=== PATIENT | female | born 1935 | race African-American/Black ===

== ENCOUNTER 2017-11-13 07:02 | Inpatient (IN) | payer MEDICARE, MEDICAID ==
[~2017-11-13] VITALS: Ht 170.2 cm; Wt 64.9 kg
[2017-11-13] VITALS (7 sets, daily range): BP systolic 88–158; BP diastolic 53–83
[~2017-11-13 07:02] MED LIST: ALBU6.7H INH; ALPR-392 PO
[2017-11-13] MEDS ORDERED: ACETYLCYSTEINE 100MG/ML 10% VIAL 4ML INH ONE (07:15)
[2017-11-13] MEDS ORDERED: IPRATROPIUM/ALBUTEROL 0.5-3(2.5)MG/3ML NEB HHN ONE (07:15)
[2017-11-13 07:43] LABS: HEMATOCRIT. 42.3 % (36.0-48.0); HEMOGLOBIN. 13.6 g/dL (12.0-16.0); MEAN CORPUSCULAR HEMOGLOBIN 28.6 pg (28.0-32.0); MEAN CORPUSCULAR VOLUME 88.7 fL (81.0-99.0); MEAN PLATELET VOLUME 11.3 fl (7.4-10.4); PLATELET 313 x1000/uL (130-400); RED BLOOD CELL COUNT 4.77 mill/uL (4.2-5.4); RED CELL DISTRIBUTION WIDTH 14.2 % (11.6-14.6)
[2017-11-13 07:45] LABS: CHLORIDE 104 mEq/L (98-107)
[2017-11-13 07:47] LABS: INR 1.3; PARTIAL THROMBOPLASTIN TIME 26.4 sec (23.4-31.0); PROTHROMBIN TIME 13.4 sec (9.4-11.6)
[2017-11-13 08:01] LABS: PLATELET ESTIMATE NORMAL
[2017-11-13 08:14] LABS: BG BASE EXCESS 0.2 mmol/L (-2.0-2.0); BG CARBOXYHEMOGLOBIN 0.4 % (0.5-1.5); BG DEOXYHEMOGLOBIN 1.3 % (0.0-5.0); BG FRACTION INSPIRED OXYGEN 50; BG HCO3 ACT 25.2 mmol/L (22.0-26.0); BG METHEMOGLOBIN 0.4 % (0.0-1.5); BG OXYGEN SATURATION 98.7 % (92.0-98.5); BG OXYHEMOGLOBIN 97.9 % (94.0-97.0); BG PCO2 42.4 mmHg (35.0-45.0); BG PH 7.392 (7.350-7.450); BG PO2 128.3 mmHg (75.0-100.0); BG SAMPLE SITE RIGHT RADIAL; BG TIDAL VOLUME(mL) 500 mL; BG TOTAL HEMOGLOBIN 13.6 g/dL (12.0-18.0); BG VENT MODE VENT - SIMV; BG VENT RATE 14 set
[2017-11-13 08:22] LABS: CLARITY URINE TURBID (CLEAR); COLOR URINE YELLOW (YELLOW); KETONES URINE NEGATIVE (NEGATIVE); LEUKOCYTE ESTERASE URINE 3+ (NEGATIVE); NITRITE URINE NEGATIVE (NEGATIVE); OCCULT BLOOD URINE 2+ (NEGATIVE); PH URINE 5.5 (4.5-8.0); PROTEIN URINE 1+ (NEGATIVE)
[2017-11-13] MEDS ORDERED: VANCOMYCIN 1 G PREMIX 200 ML IV SCH (08:30)
[2017-11-13] MEDS ORDERED: PIPERACILLIN/TAZOBACTAM 3.375GM/50ML PREMIX IV ONE (08:30)
[2017-11-13] MEDS ORDERED: SODIUM CHLORIDE 0.9% 1000ML BAG (SEPSIS BOLUS) IV ONE (08:30)
[2017-11-13] MEDS ORDERED: PIPERACILLIN/TAZ 3.375G PREMIX 50 ML IV ONE (08:45)
[2017-11-13] MEDS ORDERED: IPRATROPIUM/ALBUTEROL 0.5-3(2.5)MG/3ML NEB HHN PRN (11:15)
[2017-11-13] MEDS ORDERED: DOCUSATE SODIUM 100MG CAPSULE PO PRN (12:00)
[2017-11-13] MEDS ORDERED: MORPHINE SULFATE 4 MG/ML CPJ (NOT FOR IM USE) IV PRN (12:00)
[2017-11-13] MEDS ORDERED: NITROGLYCERIN 0.4MG TABLET SL SL PRN (12:00)
[2017-11-13] MEDS ORDERED: ACETAMINOPHEN 325MG TABLET PO PRN (12:00)
[2017-11-13] MEDS ORDERED: GUAIFENESIN 200MG/10ML SUGAR FREE UDC PO PRN (12:00)
[2017-11-13] MEDS ORDERED: LORAZEPAM 0.5MG TABLET PO PRN (12:00)
[2017-11-13] MEDS ORDERED: DIPHENHYDRAMINE 50MG/ML VIAL IV PRN (12:00)
[2017-11-13] MEDS ORDERED: TRAMADOL 50MG TABLET PO PRN (12:00)
[2017-11-13] MEDS ORDERED: ZOLPIDEM TARTRATE 5MG TABLET PO PRN (12:00)
[2017-11-13] MEDS ORDERED: CLONIDINE 0.1MG TABLET PO PRN (12:00)
[2017-11-13] MEDS ORDERED: NA PHOS,M-B/NA PHOS,DI-BA ENEMA 118ML PR PRN (12:00)
[2017-11-13] MEDS ORDERED: MAGNESIUM/ALUMINUM HYDROXIDE/SIMETHICONE 30ML UDC PO PRN (12:00)
[2017-11-13] MEDS ORDERED: ONDANSETRON HCL 4MG/2ML VIAL IV PRN (12:00)
[2017-11-13] MEDS: IPRATROPIUM/ALBUTEROL 0.5-3(2.5)MG/3ML NEB HHN SCH ×4 (12:08→23:40)
[2017-11-13] MEDS ORDERED: SODIUM CHLORIDE 10% FOR INH 15ML VIAL NEB INH SCH (12:30)
[2017-11-13] MEDS: MEROPENEM 1,000 MG in SODIUM CHLORIDE 0.9% 100 ML IV SCH ×2 (14:42→21:21)
[2017-11-13] MEDS: ASCORBIC ACID 500 MG TABLET PO SCH ×2 (14:53→21:19)
[2017-11-13] MEDS: ZINC SULFATE 220 MG ( 50 ) CAPSULE PO SCH (14:53)
[2017-11-13] MEDS: ASPIRIN 325MG EC TABLET PO SCH (14:53)
[2017-11-13] MEDS: ENOXAPARIN 40MG/0.4ML SYR SUBCUT SCH (14:54)
[2017-11-13 16:16] LABS: CREATINE KINASE MB FRACTION 3.5 ng/mL (0.5-3.6)
[2017-11-13] MEDS: ACETYLCYSTEINE 100MG/ML 10% VIAL 4ML INH SCH ×2 (16:24→23:40)
[2017-11-13] MEDS: LEVETIRACETAM 500MG/5ML CUP GT SCH (17:29)
[2017-11-13] MEDS ORDERED: LOSARTAN POTASSIUM 50 MG TABLET GT SCH (18:00)
[2017-11-13] MEDS ORDERED: ATORVASTATIN CALCIUM 10MG TABLET GT SCH (21:00)
[2017-11-13] MEDS ORDERED: LEVETIRACETAM 500MG/5ML CUP GT SCH (21:00)
[2017-11-13] MEDS: ATORVASTATIN CALCIUM 10MG TABLET GT SCH (21:18)
[2017-11-13] MEDS: FAMOTIDINE 20MG TABLET PO SCH (21:20)
[2017-11-14] VITALS (12 sets, daily range): BP systolic 108–159; BP diastolic 45–116
[2017-11-14] MEDS: VANCOMYCIN 1 G PREMIX 200 ML IV SCH ×2 (00:01→18:11)
[2017-11-14 01:24] LABS: CREATINE KINASE MB FRACTION 3.1 ng/mL (0.5-3.6)
[2017-11-14] MEDS: IPRATROPIUM/ALBUTEROL 0.5-3(2.5)MG/3ML NEB HHN SCH ×5 (03:25→20:38)
[2017-11-14] MEDS: LEVETIRACETAM 500MG/5ML CUP GT SCH ×2 (05:51→18:11)
[2017-11-14] MEDS: MEROPENEM 1,000 MG in SODIUM CHLORIDE 0.9% 100 ML IV SCH ×2 (05:52→14:04)
[2017-11-14] MEDS: ACETYLCYSTEINE 100MG/ML 10% VIAL 4ML INH SCH ×2 (08:45→16:10)
[2017-11-14] MEDS ORDERED: LOSARTAN POTASSIUM 50 MG TABLET GT SCH (09:00)
[2017-11-14 09:21] LABS: BG BASE EXCESS 2.3 mmol/L (-2.0-2.0); BG CARBOXYHEMOGLOBIN 0.1 % (0.5-1.5); BG DEOXYHEMOGLOBIN 1.2 % (0.0-5.0); BG FRACTION INSPIRED OXYGEN 40; BG HCO3 ACT 26.3 mmol/L (22.0-26.0); BG METHEMOGLOBIN 0.2 % (0.0-1.5); BG OXYGEN SATURATION 98.8 % (92.0-98.5); BG OXYHEMOGLOBIN 98.5 % (94.0-97.0); BG PCO2 38.5 mmHg (35.0-45.0); BG PH 7.452 (7.350-7.450); BG PO2 150.8 mmHg (75.0-100.0); BG SAMPLE SITE RIGHT RADIAL; BG TIDAL VOLUME(mL) 500 mL; BG TOTAL HEMOGLOBIN 11.4 g/dL (12.0-18.0); BG VENT MODE VENT - A/C; BG VENT RATE 14 set
[2017-11-14] MEDS: ENOXAPARIN 40MG/0.4ML SYR SUBCUT SCH (09:40)
[2017-11-14] MEDS: ASPIRIN 325MG EC TABLET PO SCH (09:40)
[2017-11-14] MEDS: ASCORBIC ACID 500 MG TABLET PO SCH ×2 (09:40→21:20)
[2017-11-14] MEDS: ZINC SULFATE 220 MG ( 50 ) CAPSULE PO SCH (09:40)
[2017-11-14 10:30] LABS: BASOPHILS % 0.3 % (0.0-2.0); EOSINOPHILS % 2.4 % (0.0-5.0); HEMATOCRIT. 31.9 % (36.0-48.0); HEMOGLOBIN. 10.3 g/dL (12.0-16.0); LYMPHOCYTES % 7.2 % (20.0-50.0); MEAN CORPUSCULAR HEMOGLOBIN 28.2 pg (28.0-32.0); MEAN CORPUSCULAR VOLUME 87.8 fL (81.0-99.0); MEAN PLATELET VOLUME 11.2 fl (7.4-10.4); NEUTROPHILS % 84.1 % (40.0-76.0); PLATELET 218 x1000/uL (130-400); RED BLOOD CELL COUNT 3.63 mill/uL (4.2-5.4); RED CELL DISTRIBUTION WIDTH 14.8 % (11.6-14.6)
[2017-11-14 10:52] LABS: CHLORIDE 109 mEq/L (98-107)
[2017-11-14 11:03] LABS: CREATINE KINASE 61 IU/L (26-192)
[2017-11-14 11:05] LABS: CREATINE KINASE MB FRACTION 2.6 ng/mL (0.5-3.6)
[2017-11-14] MEDS: FAMOTIDINE 20MG TABLET PO SCH (21:20)
[2017-11-14] MEDS: ATORVASTATIN CALCIUM 10MG TABLET GT SCH (21:21)
[2017-11-15] VITALS (14 sets, daily range): BP systolic 105–175; BP diastolic 52–93
[2017-11-15] MEDS: ACETYLCYSTEINE 100MG/ML 10% VIAL 4ML INH SCH ×3 (00:34→15:58)
[2017-11-15] MEDS: IPRATROPIUM/ALBUTEROL 0.5-3(2.5)MG/3ML NEB HHN SCH ×6 (00:35→20:58)
[2017-11-15] MEDS: MEROPENEM 1,000 MG in SODIUM CHLORIDE 0.9% 100 ML IV SCH ×2 (00:48→05:57)
[2017-11-15] MEDS: LEVETIRACETAM 500MG/5ML CUP GT SCH ×2 (06:38→17:33)
[2017-11-15] MEDS: ZINC SULFATE 220 MG ( 50 ) CAPSULE PO SCH (08:46)
[2017-11-15] MEDS: ASPIRIN 325MG EC TABLET PO SCH (08:46)
[2017-11-15] MEDS: ASCORBIC ACID 500 MG TABLET PO SCH ×2 (08:46→21:07)
[2017-11-15] MEDS: ENOXAPARIN 40MG/0.4ML SYR SUBCUT SCH (08:47)
[2017-11-15] MEDS: PIPERACILLIN/TAZ 3.375G PREMIX 50 ML IV SCH ×2 (12:34→21:07)
[2017-11-15] MEDS: VANCOMYCIN 1 G PREMIX 200 ML IV SCH (12:34)
[2017-11-15] MEDS: ATORVASTATIN CALCIUM 10MG TABLET GT SCH (21:07)
[2017-11-15] MEDS: FAMOTIDINE 20MG TABLET PO SCH (21:07)
[2017-11-16] VITALS (13 sets, daily range): BP systolic 107–163; BP diastolic 47–87
[2017-11-16] MEDS: ACETYLCYSTEINE 100MG/ML 10% VIAL 4ML INH SCH ×3 (00:45→16:53)
[2017-11-16] MEDS: IPRATROPIUM/ALBUTEROL 0.5-3(2.5)MG/3ML NEB HHN SCH ×6 (00:47→20:37)
[2017-11-16] MEDS: PIPERACILLIN/TAZ 3.375G PREMIX 50 ML IV SCH ×3 (04:53→20:44)
[2017-11-16] MEDS: LEVETIRACETAM 500MG/5ML CUP GT SCH ×2 (05:44→16:57)
[2017-11-16] MEDS: ASPIRIN 325MG EC TABLET PO SCH (09:16)
[2017-11-16] MEDS: ASCORBIC ACID 500 MG TABLET PO SCH ×2 (09:16→20:44)
[2017-11-16] MEDS: ZINC SULFATE 220 MG ( 50 ) CAPSULE PO SCH (09:16)
[2017-11-16] MEDS: ENOXAPARIN 40MG/0.4ML SYR SUBCUT SCH (09:17)
[2017-11-16] MEDS ORDERED: GENTAMICIN 120MG PREMIX 100 ML IV NR (16:00)
[2017-11-16] MEDS: ATORVASTATIN CALCIUM 10MG TABLET GT SCH (20:44)
[2017-11-16] MEDS: FAMOTIDINE 20MG TABLET PO SCH (20:44)
[2017-11-17] VITALS (12 sets, daily range): BP systolic 119–172; BP diastolic 58–89
[2017-11-17] MEDS: ACETYLCYSTEINE 100MG/ML 10% VIAL 4ML INH SCH ×3 (00:17→15:48)
[2017-11-17] MEDS: IPRATROPIUM/ALBUTEROL 0.5-3(2.5)MG/3ML NEB HHN SCH ×6 (00:17→19:49)
[2017-11-17] MEDS: PIPERACILLIN/TAZ 3.375G PREMIX 50 ML IV SCH ×3 (03:25→21:58)
[2017-11-17] MEDS ORDERED: GENTAMICIN 100MG PREMIX 50 ML IV SCH (04:00)
[2017-11-17] MEDS: LEVETIRACETAM 500MG/5ML CUP GT SCH ×2 (05:47→17:08)
[2017-11-17 08:38] LABS: CHLORIDE 107 mEq/L (98-107)
[2017-11-17] MEDS: ASPIRIN 325MG EC TABLET PO SCH (09:50)
[2017-11-17] MEDS: ZINC SULFATE 220 MG ( 50 ) CAPSULE PO SCH (09:50)
[2017-11-17] MEDS: ASCORBIC ACID 500 MG TABLET PO SCH ×2 (09:50→21:58)
[2017-11-17] MEDS: ENOXAPARIN 40MG/0.4ML SYR SUBCUT SCH (09:51)
[2017-11-17] MEDS: ATORVASTATIN CALCIUM 10MG TABLET GT SCH (21:58)
[2017-11-17] MEDS: FAMOTIDINE 20MG TABLET PO SCH (21:59)
[2017-11-18] VITALS (10 sets, daily range): BP systolic 110–152; BP diastolic 47–80
[2017-11-18] MEDS ORDERED: GENTAMICIN SULFATE 160 MG in SODIUM CHLORIDE 0.9% 100 ML IV SCH ×2
[2017-11-18] MEDS: IPRATROPIUM/ALBUTEROL 0.5-3(2.5)MG/3ML NEB HHN SCH ×4 (00:04→12:10)
[2017-11-18] MEDS: ACETYLCYSTEINE 100MG/ML 10% VIAL 4ML INH SCH ×2 (00:05→07:48)
[2017-11-18] MEDS: LEVETIRACETAM 500MG/5ML CUP GT SCH (06:35)
[2017-11-18] MEDS: PIPERACILLIN/TAZ 3.375G PREMIX 50 ML IV SCH (06:35)
[2017-11-18] MEDS: ZINC SULFATE 220 MG ( 50 ) CAPSULE PO SCH (09:26)
[2017-11-18] MEDS: ASCORBIC ACID 500 MG TABLET PO SCH (09:27)
[2017-11-18] MEDS: ASPIRIN 325MG EC TABLET PO SCH (09:28)
[2017-11-18] MEDS: ENOXAPARIN 40MG/0.4ML SYR SUBCUT SCH (09:34)
== END 2017-11-18 16:00 | DRG 870 ==
LOC: ER 07:02 → EDBEDREQSVC 09:29 → 5EST 10:06 → ENRESERV 10:06
PROVIDERS: ADMIT Internal Medicine; ATTEND Internal Medicine
PROC: 5A1955Z Respiratory Ventilation, Greater than 96 Consecutive Hours (ICD-10-PCS; principal; 2017-11-13)
DX: A41.9 Sepsis, unspecified organism (principal); J96.20 Acute and chronic respiratory failure, unspecified whether with hypoxia or hypercapnia; G92 Toxic encephalopathy; E43 Unspecified severe protein-calorie malnutrition; J69.0 Pneumonitis due to inhalation of food and vomit; I21.4 Non-ST elevation (NSTEMI) myocardial infarction; N39.0 Urinary tract infection, site not specified; Z99.11 Dependence on respirator [ventilator] status; Y95 Nosocomial condition; B96.1 Klebsiella pneumoniae [K. pneumoniae] as the cause of diseases classified elsewhere; G40.909 Epilepsy, unspecified, not intractable, without status epilepticus; R74.8 Abnormal levels of other serum enzymes; R79.89 Other specified abnormal findings of blood chemistry; R00.1 Bradycardia, unspecified; I10 Essential (primary) hypertension; I25.10 Atherosclerotic heart disease of native coronary artery without angina pectoris; I73.9 Peripheral vascular disease, unspecified; I69.320 Aphasia following cerebral infarction; I48.91 Unspecified atrial fibrillation; Z93.0 Tracheostomy status; Z68.22 Body mass index [BMI] 22.0-22.9, adult; Z93.1 Gastrostomy status
CPT/HCPCS: 36415; 36600; 51702; 71045; 80048; 80053; 81003; 82375; 82550; 82553; 82805; 83036; 83605; 83690; 83880; 84145; 84484; 85025; 85610; 85730; 87040; 87070; 87077; 87086; 87186; 93005; 93306; 94003; 94640; 96365; 96366; 96368; 99291; J1580; J1650; J2185; J2270; J2543; J3370; J7030; J7040; J7050; J7131; J7608; J7620; A4315

== ENCOUNTER 2018-03-12 17:23 | Inpatient (IN) | payer MEDICARE, MEDICAID ==
[~2018-03-12] VITALS: Ht 165.1 cm; Wt 72.1 kg
[2018-03-12] MEDS ORDERED: LEVOFLOXACIN 750MG PREMIX 150 ML IV ONE (18:45)
[2018-03-12] MEDS ORDERED: PIPERACILLIN/TAZ 3.375G PREMIX 50 ML IV ONE (18:45)
[2018-03-12 19:57] LABS: HEMOGLOBIN. 15.9 g/dL (12.0-16.0); MEAN CORPUSCULAR VOLUME 89.6 fL (81.0-99.0); MEAN PLATELET VOLUME 11.3 fl (7.4-10.4); PLATELET 265 x1000/uL (130-400); RED BLOOD CELL COUNT 5.48 mill/uL (4.2-5.4); RED CELL DISTRIBUTION WIDTH 16.9 % (11.6-14.6)
[2018-03-12 20:05] LABS: BG BASE EXCESS -1.6 mmol/L (-2.0-2.0); BG CARBOXYHEMOGLOBIN 0.5 % (0.5-1.5); BG DEOXYHEMOGLOBIN 7.5 % (0.0-5.0); BG FRACTION INSPIRED OXYGEN 50; BG HCO3 ACT 22.8 mmol/L (22.0-26.0); BG METHEMOGLOBIN 0.4 % (0.0-1.5); BG OXYGEN SATURATION 92.4 % (92.0-98.5); BG OXYHEMOGLOBIN 91.6 % (94.0-97.0); BG PCO2 37.4 mmHg (35.0-45.0); BG PH 7.402 (7.350-7.450); BG PIP 31 cmH2O; BG PO2 65.2 mmHg (75.0-100.0); BG SAMPLE SITE LEFT RADIAL; BG TIDAL VOLUME(mL) 500 mL; BG TOTAL HEMOGLOBIN 15.5 g/dL (12.0-18.0); BG VENT MODE VENT - A/C; BG VENT RATE 14 set
[2018-03-12 20:09] LABS: CHLORIDE 106 mEq/L (98-107)
[2018-03-12] MEDS ORDERED: SODIUM CHLORIDE 0.9% 1000ML BAG (SEPSIS BOLUS) IV ONE (20:45)
[2018-03-12 20:50] LABS: PLATELET ESTIMATE NORMAL
[2018-03-12] MEDS ORDERED: ASPIRIN 325MG EC TABLET PO ONE (21:15)
[2018-03-12] MEDS ORDERED: ZOLPIDEM TARTRATE 5MG TABLET PO PRN (21:45)
[2018-03-12] MEDS ORDERED: IPRATROPIUM/ALBUTEROL 0.5-3(2.5)MG/3ML NEB INH PRN (21:45)
[2018-03-12] MEDS ORDERED: MAGNESIUM/ALUMINUM HYDROXIDE/SIMETHICONE 30ML UDC PO PRN (21:45)
[2018-03-12] MEDS ORDERED: CLONIDINE 0.1MG TABLET PO PRN (21:45)
[2018-03-12] MEDS ORDERED: NOREPINEPHRINE 4 MG in DEXT 5% WATER 246 ML IV PRN (21:45)
[2018-03-12] MEDS ORDERED: ONDANSETRON HCL 4MG/2ML INJ IV PRN (21:45)
[2018-03-12] MEDS ORDERED: LORAZEPAM 2MG/ML CPJ IV PRN ×2 (21:45→22:00)
[2018-03-12] MEDS ORDERED: DOCUSATE SODIUM 100MG CAPSULE PO PRN (21:45)
[2018-03-12] MEDS ORDERED: ACETAMINOPHEN 325MG TABLET PO PRN (21:45)
[2018-03-12] MEDS ORDERED: GUAIFENESIN 200MG/10ML SUGAR FREE UDC PO PRN (21:45)
[2018-03-12] MEDS ORDERED: NITROGLYCERIN 0.4MG TABLET SL SL PRN (21:45)
[2018-03-12] MEDS ORDERED: ASPIRIN 325MG TABLET PO ONE (21:45)
[2018-03-12] MEDS ORDERED: MORPHINE SULFATE 4 MG/ML CPJ (NOT FOR IM USE) IV PRN (22:15)
[2018-03-12] MEDS ORDERED: TRAMADOL 50MG TABLET PO PRN (22:15)
[2018-03-12] MEDS ORDERED: NA PHOS,M-B/NA PHOS,DI-BA ENEMA 118ML PR PRN (22:30)
[2018-03-12 23:59] LABS: CREATINE KINASE MB FRACTION 31.4 ng/mL (0.5-3.6)
[2018-03-13] VITALS (36 sets, daily range): BP systolic 92–166; BP diastolic 47–105
[2018-03-13 00:56] LABS: INR 1.4; PROTHROMBIN TIME 13.9 sec (9.1-11.1)
[2018-03-13] MEDS: DEXT 5%/LACTATED RINGERS 1,000 ML IV SCH ×2 (04:17→15:58)
[2018-03-13] MEDS: ENOXAPARIN 80MG/0.8ML SYR SUBCUT SCH ×2 (05:41→17:38)
[2018-03-13] MEDS ORDERED: CEFEPIME 1,000 MG in DEXTROSE 5% WATER 50 ML IV SCH (06:00)
[2018-03-13] MEDS ORDERED: VANCOMYCIN 1 G PREMIX 200 ML IV NR (06:30)
[2018-03-13 07:44] LABS: CLARITY URINE CLOUDY (CLEAR); COLOR URINE DARK YELLOW (YELLOW); KETONES URINE NEGATIVE (NEGATIVE); LEUKOCYTE ESTERASE URINE 2+ (NEGATIVE); NITRITE URINE NEGATIVE (NEGATIVE); OCCULT BLOOD URINE NEGATIVE (NEGATIVE); PROTEIN URINE 1+ (NEGATIVE); SPECIFIC GRAVITY URINE 1.023 (1.005-1.030)
[2018-03-13 07:47] LABS: BG BASE EXCESS -3.1 mmol/L (-2.0-2.0); BG CARBOXYHEMOGLOBIN 0.2 % (0.5-1.5); BG DEOXYHEMOGLOBIN 3.2 % (0.0-5.0); BG HCO3 ACT 20.4 mmol/L (22.0-26.0); BG OXYGEN SATURATION 96.8 % (92.0-98.5); BG OXYHEMOGLOBIN 96.6 % (94.0-97.0); BG PCO2 31.7 mmHg (35.0-45.0); BG PH 7.426 (7.350-7.450); BG PO2 92.7 mmHg (75.0-100.0); BG SAMPLE SITE RIGHT RADIAL; BG TIDAL VOLUME(mL) 500 mL; BG TOTAL HEMOGLOBIN 12.9 g/dL (12.0-18.0); BG VENT MODE VENT - A/C; BG VENT RATE 14 set
[2018-03-13] MEDS: IPRATROPIUM/ALBUTEROL 0.5-3(2.5)MG/3ML NEB HHN SCH ×5 (07:59→23:51)
[2018-03-13] MEDS: ACETYLCYSTEINE 100MG/ML 10% VIAL 4ML INH SCH ×3 (07:59→23:51)
[2018-03-13] MEDS ORDERED: GENTAMICIN 120MG PREMIX 100 ML IV NR (08:00)
[2018-03-13] MEDS: PANTOPRAZOLE SODIUM 40 MG/VIAL IV SCH (08:34)
[2018-03-13] MEDS: ZINC SULFATE 220 MG ( 50 ) CAPSULE PO SCH (08:35)
[2018-03-13] MEDS: ASCORBIC ACID 500 MG TABLET PO SCH ×2 (08:35→21:06)
[2018-03-13] MEDS: METOPROLOL TARTRATE 25MG TABLET PO SCH ×2 (08:39→21:00)
[2018-03-13] MEDS ORDERED: ASPIRIN 325MG EC TABLET PO SCH ×2 (09:00→09:30)
[2018-03-13 10:19] LABS: HEMATOCRIT 37.7 % (36.0-48.0); HEMOGLOBIN 12.3 g/dL (12.0-16.0); MEAN CORPUSCULAR HEMOGLOBIN 28.8 pg (28.0-32.0); MEAN CORPUSCULAR VOLUME 88.4 fL (81.0-99.0); PLATELET 194 x1000/uL (130-400); RED BLOOD CELL COUNT 4.27 mill/uL (4.2-5.4); RED CELL DISTRIBUTION WIDTH 16.4 % (11.6-14.6)
[2018-03-13] MEDS ORDERED: FUROSEMIDE 40MG/4ML VIAL IVP SCH (10:45)
[2018-03-13] MEDS ORDERED: METOCLOPRAMIDE HCL 5MG TABLET PO PRN (11:30)
[2018-03-13] MEDS: NYSTATIN POWDER 15GM TOP SCH ×2 (14:48→17:30)
[2018-03-13] MEDS: VANCOMYCIN 1 G PREMIX 200 ML IV SCH (14:50)
[2018-03-13] MEDS: ATORVASTATIN CALCIUM 20MG TABLET PO SCH (21:06)
[2018-03-14] VITALS (12 sets, daily range): BP systolic 110–152; BP diastolic 42–125
[2018-03-14] MEDS: IPRATROPIUM/ALBUTEROL 0.5-3(2.5)MG/3ML NEB HHN SCH ×5 (03:57→20:50)
[2018-03-14] MEDS: CEFEPIME 1,000 MG in DEXTROSE 5% WATER 50 ML IV SCH ×2 (06:00→08:49)
[2018-03-14] MEDS: GENTAMICIN SULFATE 160 MG in SODIUM CHLORIDE 0.9% 100 ML IV SCH ×2 (06:13→21:17)
[2018-03-14] MEDS: DEXT 5%/LACTATED RINGERS 1,000 ML IV SCH ×2 (06:13→18:06)
[2018-03-14] MEDS: ENOXAPARIN 80MG/0.8ML SYR SUBCUT SCH (06:14)
[2018-03-14 07:50] LABS: BG BASE EXCESS -0.6 mmol/L (-2.0-2.0); BG CARBOXYHEMOGLOBIN 0.3 % (0.5-1.5); BG DEOXYHEMOGLOBIN 2.4 % (0.0-5.0); BG FRACTION INSPIRED OXYGEN 50; BG HCO3 ACT 22.9 mmol/L (22.0-26.0); BG METHEMOGLOBIN 0.1 % (0.0-1.5); BG OXYGEN SATURATION 97.6 % (92.0-98.5); BG OXYHEMOGLOBIN 97.2 % (94.0-97.0); BG PCO2 34.3 mmHg (35.0-45.0); BG PH 7.443 (7.350-7.450); BG SAMPLE SITE RIGHT RADIAL; BG TIDAL VOLUME(mL) 500 mL; BG TOTAL HEMOGLOBIN 12.6 g/dL (12.0-18.0); BG VENT MODE VENT - A/C; BG VENT RATE 14 set
[2018-03-14] MEDS: ACETYLCYSTEINE 100MG/ML 10% VIAL 4ML INH SCH ×2 (08:03→15:45)
[2018-03-14] MEDS: PANTOPRAZOLE SODIUM 40 MG/VIAL IV SCH (08:44)
[2018-03-14] MEDS: ZINC SULFATE 220 MG ( 50 ) CAPSULE PO SCH (08:45)
[2018-03-14] MEDS: METOPROLOL TARTRATE 25MG TABLET PO SCH (08:45)
[2018-03-14] MEDS: ASCORBIC ACID 500 MG TABLET PO SCH ×2 (08:45→21:17)
[2018-03-14] MEDS: NYSTATIN POWDER 15GM TOP SCH ×3 (08:48→18:06)
[2018-03-14] MEDS: ASPIRIN 81MG EC TABLET PO SCH (08:57)
[2018-03-14] MEDS: VANCOMYCIN 1 G PREMIX 200 ML IV SCH (10:19)
[2018-03-14] MEDS ORDERED: LIDOCAINE HCL/PF 1% 2ML VIAL ONE (10:28)
[2018-03-14] MEDS: CLOPIDOGREL 75MG TABLET PO SCH (11:35)
[2018-03-14] MEDS: CARVEDILOL 6.25 MG TABLET PO SCH (21:17)
[2018-03-14] MEDS: ATORVASTATIN CALCIUM 20MG TABLET PO SCH (21:17)
[2018-03-15] VITALS (12 sets, daily range): BP systolic 121–165; BP diastolic 55–94
[2018-03-15] MEDS: IPRATROPIUM/ALBUTEROL 0.5-3(2.5)MG/3ML NEB HHN SCH ×6 (00:10→19:49)
[2018-03-15] MEDS: ACETYLCYSTEINE 100MG/ML 10% VIAL 4ML INH SCH ×3 (00:11→16:50)
[2018-03-15] MEDS: VANCOMYCIN 1 G PREMIX 200 ML IV SCH ×2 (02:32→20:47)
[2018-03-15] MEDS: DEXT 5%/LACTATED RINGERS 1,000 ML IV SCH ×2 (05:28→17:55)
[2018-03-15] MEDS: CEFEPIME 1,000 MG in DEXTROSE 5% WATER 50 ML IV SCH (05:28)
[2018-03-15 06:32] LABS: BASOPHILS % 0.3 % (0.0-2.0); EOSINOPHILS % 1.3 % (0.0-5.0); HEMATOCRIT. 35.5 % (36.0-48.0); LYMPHOCYTES % 8.1 % (20.0-50.0); MEAN CORPUSCULAR HEMOGLOBIN 29.3 pg (28.0-32.0); MEAN CORPUSCULAR VOLUME 86.8 fL (81.0-99.0); MEAN PLATELET VOLUME 11.3 fl (7.4-10.4); MONOCYTES % 4.5 % (2.0-8.0); NEUTROPHILS % 85.8 % (40.0-76.0); PLATELET 177 x1000/uL (130-400); RED BLOOD CELL COUNT 4.09 mill/uL (4.2-5.4); RED CELL DISTRIBUTION WIDTH 16.5 % (11.6-14.6)
[2018-03-15 08:21] LABS: CHLORIDE 109 mEq/L (98-107)
[2018-03-15] MEDS: ASCORBIC ACID 500 MG TABLET PO SCH ×2 (09:31→20:48)
[2018-03-15] MEDS: PANTOPRAZOLE SODIUM 40 MG/VIAL IV SCH (09:31)
[2018-03-15] MEDS: CLOPIDOGREL 75MG TABLET PO SCH (09:31)
[2018-03-15] MEDS: ASPIRIN 81MG EC TABLET PO SCH (09:31)
[2018-03-15] MEDS: ZINC SULFATE 220 MG ( 50 ) CAPSULE PO SCH (09:31)
[2018-03-15] MEDS: CARVEDILOL 6.25 MG TABLET PO SCH ×2 (09:32→20:48)
[2018-03-15] MEDS: ENOXAPARIN 40MG/0.4ML SYR SUBCUT SCH (09:33)
[2018-03-15] MEDS: NYSTATIN POWDER 15GM TOP SCH ×3 (09:34→17:54)
[2018-03-15 09:47] LABS: GENTAMICIN RANDOM 4.6 ug/mL
[2018-03-15] MEDS ORDERED: POTASSIUM CHLORIDE 20MEQ TABLET SR PO SCH (11:00)
[2018-03-15] MEDS: ATORVASTATIN CALCIUM 20MG TABLET PO SCH (20:48)
[2018-03-15] MEDS: GENTAMICIN SULFATE 160 MG in SODIUM CHLORIDE 0.9% 100 ML IV SCH (20:49)
[2018-03-16] VITALS (12 sets, daily range): BP systolic 120–161; BP diastolic 63–95
[2018-03-16] MEDS: ACETYLCYSTEINE 100MG/ML 10% VIAL 4ML INH SCH ×4 (01:10→16:42)
[2018-03-16] MEDS: IPRATROPIUM/ALBUTEROL 0.5-3(2.5)MG/3ML NEB HHN SCH ×6 (04:08→20:57)
[2018-03-16 06:08] LABS: CHLORIDE 109 mEq/L (98-107)
[2018-03-16 06:16] LABS: BASOPHILS % 0.5 % (0.0-2.0); EOSINOPHILS % 2.3 % (0.0-5.0); HEMATOCRIT. 33.7 % (36.0-48.0); LYMPHOCYTES % 10.8 % (20.0-50.0); MEAN CORPUSCULAR HEMOGLOBIN 28.5 pg (28.0-32.0); MEAN CORPUSCULAR VOLUME 87.1 fL (81.0-99.0); MEAN PLATELET VOLUME 11.6 fl (7.4-10.4); MONOCYTES % 5.5 % (2.0-8.0); NEUTROPHILS % 80.9 % (40.0-76.0); PLATELET 164 x1000/uL (130-400); RED BLOOD CELL COUNT 3.87 mill/uL (4.2-5.4); RED CELL DISTRIBUTION WIDTH 16.1 % (11.6-14.6)
[2018-03-16] MEDS: CEFEPIME 1,000 MG in DEXTROSE 5% WATER 50 ML IV SCH (06:41)
[2018-03-16] MEDS: ZINC SULFATE 220 MG ( 50 ) CAPSULE PO SCH (09:54)
[2018-03-16] MEDS: ASCORBIC ACID 500 MG TABLET PO SCH ×2 (09:54→22:09)
[2018-03-16] MEDS: ASPIRIN 81MG EC TABLET PO SCH (09:54)
[2018-03-16] MEDS: CLOPIDOGREL 75MG TABLET PO SCH (09:55)
[2018-03-16] MEDS: ENOXAPARIN 40MG/0.4ML SYR SUBCUT SCH (09:55)
[2018-03-16] MEDS: PANTOPRAZOLE SODIUM 40 MG/VIAL IV SCH (09:55)
[2018-03-16] MEDS: CARVEDILOL 6.25 MG TABLET PO SCH ×2 (09:55→22:10)
[2018-03-16] MEDS: DEXT 5%/LACTATED RINGERS 1,000 ML IV SCH ×2 (09:58→23:23)
[2018-03-16] MEDS: NYSTATIN POWDER 15GM TOP SCH ×2 (12:13→16:33)
[2018-03-16] MEDS: VANCOMYCIN 1 G PREMIX 200 ML IV SCH (14:31)
[2018-03-16] MEDS ORDERED: MAGNESIUM SULFATE 2 GM in DEXTROSE 5% WATER 50 ML IV NR (16:30)
[2018-03-16 18:00] LABS: BG BASE EXCESS 1.7 mmol/L (-2.0-2.0); BG CARBOXYHEMOGLOBIN 0.2 % (0.5-1.5); BG DEOXYHEMOGLOBIN 4.5 % (0.0-5.0); BG HCO3 ACT 25.8 mmol/L (22.0-26.0); BG METHEMOGLOBIN 0.3 % (0.0-1.5); BG OXYGEN SATURATION 95.5 % (92.0-98.5); BG PCO2 38.5 mmHg (35.0-45.0); BG PH 7.444 (7.350-7.450); BG PO2 77.2 mmHg (75.0-100.0); BG SAMPLE SITE RIGHT RADIAL; BG TIDAL VOLUME(mL) 500 mL; BG TOTAL HEMOGLOBIN 11.3 g/dL (12.0-18.0); BG VENT MODE VENT - A/C; BG VENT RATE 14 set
[2018-03-16] MEDS: ATORVASTATIN CALCIUM 20MG TABLET PO SCH (22:09)
[2018-03-16] MEDS: GENTAMICIN SULFATE 160 MG in SODIUM CHLORIDE 0.9% 100 ML IV SCH (22:10)
[2018-03-17] VITALS (12 sets, daily range): BP systolic 106–205; BP diastolic 56–113
[2018-03-17] MEDS: IPRATROPIUM/ALBUTEROL 0.5-3(2.5)MG/3ML NEB HHN SCH ×6 (01:10→21:28)
[2018-03-17] MEDS: CEFEPIME 1,000 MG in DEXTROSE 5% WATER 50 ML IV SCH (06:54)
[2018-03-17] MEDS: CARVEDILOL 6.25 MG TABLET PO SCH ×3 (06:55→21:27)
[2018-03-17] MEDS: VANCOMYCIN 1 G PREMIX 200 ML IV SCH (08:21)
[2018-03-17] MEDS: ENOXAPARIN 40MG/0.4ML SYR SUBCUT SCH (08:21)
[2018-03-17] MEDS: CLOPIDOGREL 75MG TABLET PO SCH (08:21)
[2018-03-17] MEDS: PANTOPRAZOLE SODIUM 40 MG/VIAL IV SCH (08:21)
[2018-03-17] MEDS: ZINC SULFATE 220 MG ( 50 ) CAPSULE PO SCH (08:22)
[2018-03-17] MEDS: ASPIRIN 81MG EC TABLET PO SCH (08:22)
[2018-03-17] MEDS: ASCORBIC ACID 500 MG TABLET PO SCH ×2 (08:22→21:27)
[2018-03-17] MEDS: NYSTATIN POWDER 15GM TOP SCH ×3 (08:31→16:56)
[2018-03-17] MEDS: ACETYLCYSTEINE 100MG/ML 10% VIAL 4ML INH SCH ×2 (09:13→15:38)
[2018-03-17] MEDS ORDERED: CLON0.1T PEG (09:35)
[2018-03-17] MEDS ORDERED: DIPH25CA83 PEG (09:35)
[2018-03-17] MEDS ORDERED: DOCU-138 PEG (09:35)
[2018-03-17] MEDS ORDERED: FAMO20TA8 PEG (09:35)
[2018-03-17] MEDS ORDERED: FEO PR (09:35)
[2018-03-17] MEDS ORDERED: [UNRECOGNIZED DRUG - CODE] PEG (09:35)
[2018-03-17] MEDS ORDERED: MOM PEG (09:35)
[2018-03-17] MEDS ORDERED: ONDA4TAB5 PEG (09:35)
[2018-03-17] MEDS ORDERED: HYDR-4001 PEG (09:35)
[2018-03-17] MEDS ORDERED: KEPPSOL PEG (09:35)
[2018-03-17] MEDS ORDERED: CRAN3875 PEG (09:35)
[2018-03-17] MEDS ORDERED: ASPI-986 PEG (09:35)
[2018-03-17] MEDS ORDERED: MULTIVITAMIN W/MIN PEG (09:35)
[2018-03-17] MEDS ORDERED: BISA10SU62 RC (09:35)
[2018-03-17] MEDS ORDERED: ACET160S PEG (09:35)
[2018-03-17 10:16] LABS: BASOPHILS % 0.3 % (0.0-2.0); EOSINOPHILS % 2.4 % (0.0-5.0); HEMATOCRIT. 36.5 % (36.0-48.0); HEMOGLOBIN. 12.2 g/dL (12.0-16.0); LYMPHOCYTES % 10.4 % (20.0-50.0); MEAN CORPUSCULAR HEMOGLOBIN 29.2 pg (28.0-32.0); MEAN CORPUSCULAR VOLUME 87.6 fL (81.0-99.0); MEAN PLATELET VOLUME 11.3 fl (7.4-10.4); MONOCYTES % 7.8 % (2.0-8.0); NEUTROPHILS % 79.1 % (40.0-76.0); PLATELET 197 x1000/uL (130-400); RED BLOOD CELL COUNT 4.17 mill/uL (4.2-5.4); RED CELL DISTRIBUTION WIDTH 16.2 % (11.6-14.6)
[2018-03-17 10:37] LABS: CHLORIDE 106 mEq/L (98-107)
[2018-03-17] MEDS: LEVETIRACETAM 500MG/5ML CUP PEG SCH ×2 (11:58→21:26)
[2018-03-17] MEDS: ATORVASTATIN CALCIUM 20MG TABLET PO SCH (21:26)
[2018-03-17] MEDS: GENTAMICIN SULFATE 160 MG in SODIUM CHLORIDE 0.9% 100 ML IV SCH (21:27)
[2018-03-18] VITALS (12 sets, daily range): BP systolic 95–128; BP diastolic 39–73
[2018-03-18] MEDS: IPRATROPIUM/ALBUTEROL 0.5-3(2.5)MG/3ML NEB HHN SCH ×6 (01:23→21:15)
[2018-03-18] MEDS: ACETYLCYSTEINE 100MG/ML 10% VIAL 4ML INH SCH ×2 (01:23→08:04)
[2018-03-18] MEDS: VANCOMYCIN 1 G PREMIX 200 ML IV SCH (02:04)
[2018-03-18] MEDS: CEFEPIME 1,000 MG in DEXTROSE 5% WATER 50 ML IV SCH (05:32)
[2018-03-18] MEDS: CARVEDILOL 6.25 MG TABLET PO SCH ×3 (05:32→21:22)
[2018-03-18] MEDS: ASPIRIN 81MG EC TABLET PO SCH (08:12)
[2018-03-18] MEDS: FAMOTIDINE 20MG/2ML VIAL IV SCH (08:12)
[2018-03-18] MEDS: CLOPIDOGREL 75MG TABLET PO SCH (08:12)
[2018-03-18] MEDS: ASCORBIC ACID 500 MG TABLET PO SCH ×2 (08:12→21:22)
[2018-03-18] MEDS: ZINC SULFATE 220 MG ( 50 ) CAPSULE PO SCH (08:12)
[2018-03-18] MEDS: LEVETIRACETAM 500MG/5ML CUP PEG SCH ×2 (08:12→21:22)
[2018-03-18] MEDS: ENOXAPARIN 40MG/0.4ML SYR SUBCUT SCH (08:13)
[2018-03-18] MEDS: NYSTATIN POWDER 15GM TOP SCH ×3 (08:36→16:42)
[2018-03-18] MEDS: VANCOMYCIN 750 MG PREMIX 150 ML IV SCH (18:07)
[2018-03-18] MEDS ORDERED: GENTAMICIN SULFATE 120 MG in SODIUM CHLORIDE 0.9% 100 ML IV SCH (21:00)
[2018-03-18] MEDS: ATORVASTATIN CALCIUM 20MG TABLET PO SCH (21:22)
[2018-03-19] VITALS (12 sets, daily range): BP systolic 107–142; BP diastolic 35–78
[2018-03-19] MEDS: IPRATROPIUM/ALBUTEROL 0.5-3(2.5)MG/3ML NEB HHN SCH ×3 (00:53→20:05)
[2018-03-19] MEDS: CARVEDILOL 6.25 MG TABLET PO SCH ×2 (06:00→13:46)
[2018-03-19] MEDS: CEFEPIME 1,000 MG in DEXTROSE 5% WATER 50 ML IV SCH (06:34)
[2018-03-19] MEDS: CLOPIDOGREL 75MG TABLET PO SCH (08:34)
[2018-03-19] MEDS: ASPIRIN 81MG EC TABLET PO SCH (08:34)
[2018-03-19] MEDS: ZINC SULFATE 220 MG ( 50 ) CAPSULE PO SCH (08:34)
[2018-03-19] MEDS: FAMOTIDINE 20MG/2ML VIAL IV SCH (08:34)
[2018-03-19] MEDS: LEVETIRACETAM 500MG/5ML CUP PEG SCH (08:34)
[2018-03-19] MEDS: ASCORBIC ACID 500 MG TABLET PO SCH (08:34)
[2018-03-19] MEDS: ENOXAPARIN 40MG/0.4ML SYR SUBCUT SCH (08:34)
[2018-03-19] MEDS: NYSTATIN POWDER 15GM TOP SCH ×3 (08:35→17:20)
[2018-03-19] MEDS: VANCOMYCIN 750 MG PREMIX 150 ML IV SCH (11:52)
== END 2018-03-19 21:04 | DRG 870 ==
LOC: ER 17:36 → CVICU 21:04 → SUPCPDRO 21:35 → ENRESERV 03-13 01:54 → 5EST 03-13 18:00
PROVIDERS: ADMIT Internal Medicine; ATTEND Internal Medicine
PROC: 5A1955Z Respiratory Ventilation, Greater than 96 Consecutive Hours (ICD-10-PCS; principal; 2018-03-12)
DX: A41.9 Sepsis, unspecified organism (principal); I21.4 Non-ST elevation (NSTEMI) myocardial infarction; J18.9 Pneumonia, unspecified organism; G92 Toxic encephalopathy; J96.20 Acute and chronic respiratory failure, unspecified whether with hypoxia or hypercapnia; E44.0 Moderate protein-calorie malnutrition; N39.0 Urinary tract infection, site not specified; I42.9 Cardiomyopathy, unspecified; T17.890A Other foreign object in other parts of respiratory tract causing asphyxiation, initial encounter; Z99.11 Dependence on respirator [ventilator] status; I48.2 Chronic atrial fibrillation; L30.4 Erythema intertrigo; L89.150 Pressure ulcer of sacral region, unstageable; I44.7 Left bundle-branch block, unspecified; E78.5 Hyperlipidemia, unspecified; X58.XXXA Exposure to other specified factors, initial encounter; F03.90 Unspecified dementia, unspecified severity, without behavioral disturbance, psychotic disturbance, mood disturbance, and anxiety; G40.909 Epilepsy, unspecified, not intractable, without status epilepticus; I10 Essential (primary) hypertension; I73.9 Peripheral vascular disease, unspecified; I25.10 Atherosclerotic heart disease of native coronary artery without angina pectoris; Y95 Nosocomial condition; Z74.01 Bed confinement status; Z93.1 Gastrostomy status; I25.2 Old myocardial infarction; Z68.26 Body mass index [BMI] 26.0-26.9, adult; Z79.899 Other long term (current) drug therapy; Z86.73 Personal history of transient ischemic attack (TIA), and cerebral infarction without residual deficits; Y93.89 Activity, other specified; Y92.89 Other specified places as the place of occurrence of the external cause; Y99.8 Other external cause status; Z93.0 Tracheostomy status
CPT/HCPCS: 36415; 36600; 71045; 80048; 80061; 80170; 80202; 82375; 82550; 82553; 82805; 82962; 83036; 83605; 83735; 83880; 84134; 84145; 84484; 85027; 87070; 87077; 87186; 87804; 93005; 93306; 93970; 94003; 94640; 94667; 96365; 97163; 99291; A6261; C9113; J0692; J1580; J1650; J1940; J1956; J2543; J3370; J3475; J3490; J7030; J7050; J7060; J7608; J7620

== ENCOUNTER 2018-08-03 11:37 | Inpatient (IN) | payer MEDICARE, MEDICAID ==
[~2018-08-03] VITALS: Ht 160 cm; Wt 75.3 kg
[2018-08-03] MEDS ORDERED: ONDANSETRON HCL 4MG/2ML INJ IV STA (12:14)
[2018-08-03] MEDS ORDERED: SODIUM CHLORIDE 0.9% 1000ML BAG (SEPSIS BOLUS) IV ONE (12:15)
[2018-08-03] MEDS ORDERED: CEFTRIAXONE 1 G PREMIX 50 ML IV ONE (12:15)
[2018-08-03 13:23] LABS: BASOPHILS % 0.4 % (0.0-2.0); EOSINOPHILS % 4.8 % (0.0-5.0); HEMATOCRIT. 33.9 % (36.0-48.0); HEMOGLOBIN. 10.8 g/dL (12.0-16.0); MEAN CORPUSCULAR HEMOGLOBIN 29.4 pg (28.0-32.0); MEAN CORPUSCULAR VOLUME 92.8 fL (81.0-99.0); MONOCYTES % 7.9 % (2.0-8.0); NEUTROPHILS % 76.9 % (40.0-76.0); PLATELET 257 x1000/uL (130-400); RED BLOOD CELL COUNT 3.65 mill/uL (4.2-5.4); RED CELL DISTRIBUTION WIDTH 16.4 % (11.6-14.6)
[2018-08-03 13:28] LABS: CLARITY URINE CLOUDY (CLEAR); COLOR URINE YELLOW (YELLOW); KETONES URINE NEGATIVE (NEGATIVE); LEUKOCYTE ESTERASE URINE 3+ (NEGATIVE); NITRITE URINE NEGATIVE (NEGATIVE); OCCULT BLOOD URINE NEGATIVE (NEGATIVE); PH URINE 8.5 (4.5-8.0); PROTEIN URINE TRACE (NEGATIVE); SPECIFIC GRAVITY URINE 1.017 (1.005-1.030)
[2018-08-03 13:33] LABS: CHLORIDE 100 mEq/L (98-107)
[2018-08-03 13:48] LABS: INR 1.2; PROTHROMBIN TIME 11.7 sec (9.1-11.1)
[2018-08-03] MEDS ORDERED: ASPIRIN 325MG TABLET PO ONE (14:45)
[2018-08-03] MEDS ORDERED: ONDANSETRON HCL 4MG/2ML INJ IV ONE (19:15)
[2018-08-03] MEDS ORDERED: CLONIDINE 0.1MG TABLET PO PRN (19:30)
[2018-08-03] MEDS ORDERED: DOCUSATE SODIUM 100MG CAPSULE PO PRN (19:30)
[2018-08-03] MEDS ORDERED: ENOXAPARIN 40MG/0.4ML SYR SUBCUT SCH ×2 (19:30→20:00)
[2018-08-03] MEDS ORDERED: ONDANSETRON HCL 4MG/2ML INJ IV PRN ×2 (19:30→19:57)
[2018-08-03] MEDS ORDERED: ACETAMINOPHEN 650MG SUPP PR PRN (19:30)
[2018-08-03] MEDS ORDERED: LEVOFLOXACIN 500MG PREMIX 100 ML IV SCH (19:47)
[2018-08-03] MEDS: DEXT 5%/0.45% NACL 1000ML 1,000 ML IV SCH (20:14)
[2018-08-03 23:07] LABS: CREATINE KINASE MB FRACTION 2.3 ng/mL (0.5-3.6)
[2018-08-04 05:11] LABS: BASOPHILS % 0.4 % (0.0-2.0); EOSINOPHILS % 3.6 % (0.0-5.0); HEMATOCRIT. 31.5 % (36.0-48.0); HEMOGLOBIN. 10.2 g/dL (12.0-16.0); LYMPHOCYTES % 11.6 % (20.0-50.0); MEAN CORPUSCULAR HEMOGLOBIN 29.2 pg (28.0-32.0); MEAN CORPUSCULAR VOLUME 90.1 fL (81.0-99.0); MEAN PLATELET VOLUME 10.8 fl (7.4-10.4); MONOCYTES % 8.1 % (2.0-8.0); NEUTROPHILS % 76.3 % (40.0-76.0); PLATELET 244 x1000/uL (130-400); RED CELL DISTRIBUTION WIDTH 15.9 % (11.6-14.6)
[2018-08-04 05:15] LABS: CHLORIDE 108 mEq/L (98-107)
[2018-08-04 05:24] LABS: CREATINE KINASE 43 IU/L (26-192)
[2018-08-04 05:25] LABS: CREATINE KINASE MB FRACTION 2.1 ng/mL (0.5-3.6)
[2018-08-04] MEDS ORDERED: VANCOMYCIN 1 G PREMIX 200 ML IV NR (05:30)
[2018-08-04 09:11] LABS: BG BASE EXCESS 3.9 mmol/L (-2.0-2.0); BG CARBOXYHEMOGLOBIN 0.1 % (0.5-1.5); BG DEOXYHEMOGLOBIN 5.1 % (0.0-5.0); BG FRACTION INSPIRED OXYGEN 50; BG HCO3 ACT 27.1 mmol/L (22.0-26.0); BG OXYGEN SATURATION 94.9 % (92.0-98.5); BG OXYHEMOGLOBIN 94.8 % (94.0-97.0); BG PCO2 35.6 mmHg (35.0-45.0); BG PO2 69.4 mmHg (75.0-100.0); BG SAMPLE SITE RIGHT RADIAL; BG TIDAL VOLUME(mL) 500 mL; BG TOTAL HEMOGLOBIN 10.4 g/dL (12.0-18.0); BG VENT MODE VENT - A/C; BG VENT RATE 14 set
[2018-08-04] MEDS: DEXT 5%/0.45% NACL 1000ML 1,000 ML IV SCH (09:30)
[2018-08-04] MEDS ORDERED: IPRATROPIUM/ALBUTEROL 0.5-3(2.5)MG/3ML NEB HHN PRN (13:15)
[2018-08-04] MEDS ORDERED: PIPERACILLIN/TAZ 3.375G PREMIX 50 ML IV SCH (13:15)
[2018-08-04] MEDS ORDERED: IPRATROPIUM/ALBUTEROL 0.5-3(2.5)MG/3ML NEB HHN SCH (16:00)
[2018-08-04] MEDS ORDERED: LEVOFLOXACIN 250MG PREMIX 50 ML IV SCH (21:00)
[2018-08-04 22:20] VITALS: BP 144/70
[2018-08-04 23:15] VITALS: BP 169/94
[2018-08-04 23:30] VITALS: BP 144/75
[2018-08-04 23:45] VITALS: BP 144/76
[2018-08-05] VITALS (82 sets, daily range): BP systolic 77–188; BP diastolic 41–103
[2018-08-05] MEDS: IPRATROPIUM/ALBUTEROL 0.5-3(2.5)MG/3ML NEB HHN SCH ×6 (00:25→21:04)
[2018-08-05] MEDS: ENOXAPARIN 40MG/0.4ML SYR SUBCUT SCH ×2 (00:26→20:20)
[2018-08-05] MEDS: ACETYLCYSTEINE 100MG/ML 10% VIAL 4ML INH SCH ×3 (00:26→16:16)
[2018-08-05] MEDS: PIPERACILLIN/TAZ 3.375G PREMIX 50 ML IV SCH ×3 (01:57→17:32)
[2018-08-05] MEDS ORDERED: VANCOMYCIN 1 G PREMIX 200 ML IV SCH (03:00)
[2018-08-05] MEDS: DEXT 5%/0.45% NACL 1000ML 1,000 ML IV SCH (05:56)
[2018-08-05 07:02] LABS: BG BASE EXCESS -0.2 mmol/L (-2.0-2.0); BG CARBOXYHEMOGLOBIN 0.3 % (0.5-1.5); BG DEOXYHEMOGLOBIN 2.3 % (0.0-5.0); BG HCO3 ACT 23.7 mmol/L (22.0-26.0); BG METHEMOGLOBIN 0.1 % (0.0-1.5); BG OXYGEN SATURATION 97.7 % (92.0-98.5); BG OXYHEMOGLOBIN 97.3 % (94.0-97.0); BG PCO2 36.1 mmHg (35.0-45.0); BG PH 7.435 (7.350-7.450); BG PO2 102.3 mmHg (75.0-100.0); BG SAMPLE SITE RIGHT RADIAL; BG TIDAL VOLUME(mL) 500 mL; BG VENT MODE VENT - A/C; BG VENT RATE 12 set
[2018-08-05] MEDS: PANTOPRAZOLE SODIUM 40 MG/VIAL IV SCH (12:16)
[2018-08-05] MEDS: FUROSEMIDE 20MG/2ML VIAL IVP SCH (12:17)
[2018-08-05] MEDS: VANCOMYCIN 750 MG PREMIX 150 ML IV SCH (17:54)
[2018-08-05] MEDS: DEXT 5% IV SCH (19:09)
[2018-08-05] MEDS: SULFAMETHOXAZOLE IV SCH (19:09)
[2018-08-05] MEDS: WATER IV SCH (19:09)
[2018-08-05] MEDS: TRIMETHOPRIM IV SCH (19:09)
[2018-08-06] VITALS (74 sets, daily range): BP systolic 76–155; BP diastolic 34–90
[2018-08-06] MEDS: ACETYLCYSTEINE 100MG/ML 10% VIAL 4ML INH SCH ×3 (00:09→16:44)
[2018-08-06] MEDS: IPRATROPIUM/ALBUTEROL 0.5-3(2.5)MG/3ML NEB HHN SCH ×5 (00:10→16:44)
[2018-08-06] MEDS: DEXT 5%/0.45% NACL 1000ML 1,000 ML IV SCH ×2 (00:55→13:44)
[2018-08-06] MEDS: PIPERACILLIN/TAZ 3.375G PREMIX 50 ML IV SCH ×3 (01:44→17:00)
[2018-08-06] MEDS: VANCOMYCIN 750 MG PREMIX 150 ML IV SCH (03:22)
[2018-08-06] MEDS: TRIMETHOPRIM IV SCH ×2 (05:03→17:46)
[2018-08-06] MEDS: SULFAMETHOXAZOLE IV SCH ×2 (05:03→17:46)
[2018-08-06] MEDS: WATER IV SCH ×2 (05:03→17:46)
[2018-08-06] MEDS: DEXT 5% IV SCH ×2 (05:03→17:46)
[2018-08-06 06:54] LABS: BASOPHILS % 0.5 % (0.0-2.0); EOSINOPHILS % 5.1 % (0.0-5.0); HEMATOCRIT. 29.2 % (36.0-48.0); HEMOGLOBIN. 9.7 g/dL (12.0-16.0); LYMPHOCYTES % 18.1 % (20.0-50.0); MEAN CORPUSCULAR HEMOGLOBIN 29.6 pg (28.0-32.0); MEAN CORPUSCULAR VOLUME 89.4 fL (81.0-99.0); MEAN PLATELET VOLUME 11.1 fl (7.4-10.4); MONOCYTES % 12.4 % (2.0-8.0); NEUTROPHILS % 63.9 % (40.0-76.0); PLATELET 230 x1000/uL (130-400); RED BLOOD CELL COUNT 3.27 mill/uL (4.2-5.4); RED CELL DISTRIBUTION WIDTH 15.8 % (11.6-14.6)
[2018-08-06 06:59] LABS: CHLORIDE 104 mEq/L (98-107)
[2018-08-06] MEDS: FUROSEMIDE 20MG/2ML VIAL IVP SCH ×2 (08:10→08:11)
[2018-08-06] MEDS: PANTOPRAZOLE SODIUM 40 MG/VIAL IV SCH (08:15)
[2018-08-06] MEDS ORDERED: FUROSEMIDE 40MG/4ML VIAL IVP NR (10:00)
[2018-08-06] MEDS ORDERED: POTASSIUM CHLORIDE INJ 40 MEQ in DEXT 5% WATER 250 ML IV NR ×2 (10:30→13:00)
[2018-08-06] MEDS: ENOXAPARIN 40MG/0.4ML SYR SUBCUT SCH (20:37)
[2018-08-07] VITALS (12 sets, daily range): BP systolic 113–147; BP diastolic 37–79
[2018-08-07] MEDS: PIPERACILLIN/TAZ 3.375G PREMIX 50 ML IV SCH ×3 (02:47→17:17)
[2018-08-07] MEDS: DEXT 5%/0.45% NACL 1000ML 1,000 ML IV SCH (02:48)
[2018-08-07] MEDS: VANCOMYCIN 750 MG PREMIX 150 ML IV SCH (05:11)
[2018-08-07] MEDS: TRIMETHOPRIM IV SCH (05:11)
[2018-08-07] MEDS: SULFAMETHOXAZOLE IV SCH (05:11)
[2018-08-07] MEDS: DEXT 5% IV SCH (05:11)
[2018-08-07] MEDS: WATER IV SCH (05:11)
[2018-08-07] MEDS: IPRATROPIUM/ALBUTEROL 0.5-3(2.5)MG/3ML NEB HHN SCH ×4 (08:14→20:40)
[2018-08-07] MEDS: ACETYLCYSTEINE 100MG/ML 10% VIAL 4ML INH SCH ×2 (08:14→16:37)
[2018-08-07] MEDS: FUROSEMIDE 20MG/2ML VIAL IVP SCH (09:38)
[2018-08-07] MEDS: PANTOPRAZOLE SODIUM 40 MG/VIAL IV SCH (09:38)
[2018-08-07] MEDS: SULFAMETHOXAZOLE/TRIMETHOPRIM 800/160MG TABLET PO SCH ×2 (14:52→21:27)
[2018-08-07 15:50] LABS: BG BASE EXCESS -0.7 mmol/L (-2.0-2.0); BG FRACTION INSPIRED OXYGEN 40; BG HCO3 ACT 22.8 mmol/L (22.0-26.0); BG METHEMOGLOBIN 0.6 % (0.0-1.5); BG OXYHEMOGLOBIN 98.4 % (94.0-97.0); BG PCO2 33.2 mmHg (35.0-45.0); BG PH 7.454 (7.350-7.450); BG PO2 154.4 mmHg (75.0-100.0); BG PRESSURE SUPPORT 12; BG SAMPLE SITE RIGHT BRACHIAL; BG TIDAL VOLUME(mL) 500 mL; BG TOTAL HEMOGLOBIN 10.9 g/dL (12.0-18.0); BG VENT MODE VENT - SIMV; BG VENT RATE 8 set
[2018-08-07] MEDS: ENOXAPARIN 40MG/0.4ML SYR SUBCUT SCH (21:27)
[2018-08-08] VITALS (12 sets, daily range): BP systolic 100–157; BP diastolic 49–83
[2018-08-08] MEDS: ACETYLCYSTEINE 100MG/ML 10% VIAL 4ML INH SCH ×4 (00:21→23:27)
[2018-08-08] MEDS: IPRATROPIUM/ALBUTEROL 0.5-3(2.5)MG/3ML NEB HHN SCH ×7 (00:21→23:27)
[2018-08-08] MEDS: PIPERACILLIN/TAZ 3.375G PREMIX 50 ML IV SCH ×3 (02:41→18:52)
[2018-08-08] MEDS: VANCOMYCIN 750 MG PREMIX 150 ML IV SCH (05:20)
[2018-08-08 07:01] LABS: BASOPHILS % 0.3 % (0.0-2.0); HEMATOCRIT. 33.1 % (36.0-48.0); HEMOGLOBIN. 10.9 g/dL (12.0-16.0); LYMPHOCYTES % 14.1 % (20.0-50.0); MEAN CORPUSCULAR HEMOGLOBIN 29.7 pg (28.0-32.0); MEAN CORPUSCULAR VOLUME 89.8 fL (81.0-99.0); MEAN PLATELET VOLUME 10.7 fl (7.4-10.4); MONOCYTES % 8.8 % (2.0-8.0); NEUTROPHILS % 73.8 % (40.0-76.0); PLATELET 269 x1000/uL (130-400); RED BLOOD CELL COUNT 3.68 mill/uL (4.2-5.4); RED CELL DISTRIBUTION WIDTH 16.1 % (11.6-14.6)
[2018-08-08 07:13] LABS: CHLORIDE 104 mEq/L (98-107)
[2018-08-08] MEDS: SULFAMETHOXAZOLE/TRIMETHOPRIM 800/160MG TABLET PO SCH ×2 (09:37→21:16)
[2018-08-08] MEDS: PANTOPRAZOLE SODIUM 40 MG/VIAL IV SCH (09:37)
[2018-08-08] MEDS: FUROSEMIDE 20MG/2ML VIAL IVP SCH (09:37)
[2018-08-08] MEDS: ENOXAPARIN 40MG/0.4ML SYR SUBCUT SCH (21:16)
[2018-08-09] VITALS (12 sets, daily range): BP systolic 80–137; BP diastolic 40–64
[2018-08-09] MEDS: PIPERACILLIN/TAZ 3.375G PREMIX 50 ML IV SCH ×3 (02:02→17:53)
[2018-08-09] MEDS: IPRATROPIUM/ALBUTEROL 0.5-3(2.5)MG/3ML NEB HHN SCH ×6 (03:17→23:52)
[2018-08-09] MEDS: VANCOMYCIN 750 MG PREMIX 150 ML IV SCH (06:07)
[2018-08-09] MEDS: PANTOPRAZOLE SODIUM 40 MG/VIAL IV SCH (08:25)
[2018-08-09] MEDS: FUROSEMIDE 20MG/2ML VIAL IVP SCH (08:25)
[2018-08-09] MEDS: SULFAMETHOXAZOLE/TRIMETHOPRIM 800/160MG TABLET PO SCH ×2 (08:25→21:18)
[2018-08-09] MEDS: ACETYLCYSTEINE 100MG/ML 10% VIAL 4ML INH SCH ×3 (08:30→23:52)
[2018-08-09] MEDS ORDERED: SODIUM CHLORIDE 0.9% 500 ML IV ONE (13:30)
[2018-08-09] MEDS: NITROFURANTOIN 100MG M/M CAPSULE PO SCH (21:18)
[2018-08-09] MEDS: ENOXAPARIN 40MG/0.4ML SYR SUBCUT SCH (21:18)
[2018-08-09] MEDS ORDERED: CEFEPIME 2,000 MG in DEXT 5% WATER 100 ML IV SCH (22:45)
[2018-08-10] VITALS (13 sets, daily range): BP systolic 83–142; BP diastolic 39–85
[2018-08-10] MEDS: CEFEPIME 1,000 MG in DEXTROSE 5% WATER 50 ML IV SCH ×3 (01:12→21:51)
[2018-08-10] MEDS: IPRATROPIUM/ALBUTEROL 0.5-3(2.5)MG/3ML NEB HHN SCH ×5 (03:52→20:10)
[2018-08-10] MEDS: PANTOPRAZOLE SODIUM 40 MG/VIAL IV SCH (08:32)
[2018-08-10] MEDS: SULFAMETHOXAZOLE/TRIMETHOPRIM 800/160MG TABLET PO SCH ×2 (08:32→21:51)
[2018-08-10] MEDS: FUROSEMIDE 20MG/2ML VIAL IVP SCH (08:32)
[2018-08-10] MEDS: NITROFURANTOIN 100MG M/M CAPSULE PO SCH ×2 (08:36→21:51)
[2018-08-10] MEDS ORDERED: VANCOMYCIN 500 MG PREMIX 100 ML IV SCH (09:00)
[2018-08-10] MEDS: VANCOMYCIN 1 G PREMIX 200 ML IV SCH (17:28)
[2018-08-10] MEDS: ENOXAPARIN 40MG/0.4ML SYR SUBCUT SCH (21:51)
[2018-08-11] VITALS (12 sets, daily range): BP systolic 99–141; BP diastolic 38–100
[2018-08-11] MEDS: ACETYLCYSTEINE 100MG/ML 10% VIAL 4ML INH SCH (00:15)
[2018-08-11] MEDS: IPRATROPIUM/ALBUTEROL 0.5-3(2.5)MG/3ML NEB HHN SCH ×7 (00:16→23:53)
[2018-08-11] MEDS: CEFEPIME 1,000 MG in DEXTROSE 5% WATER 50 ML IV SCH ×2 (09:16→21:49)
[2018-08-11] MEDS: NITROFURANTOIN 100MG M/M CAPSULE PO SCH ×2 (09:16→21:49)
[2018-08-11] MEDS: SULFAMETHOXAZOLE/TRIMETHOPRIM 800/160MG TABLET PO SCH ×2 (09:16→21:49)
[2018-08-11] MEDS: PANTOPRAZOLE SODIUM 40 MG/VIAL IV SCH (09:16)
[2018-08-11] MEDS: FUROSEMIDE 20MG/2ML VIAL IVP SCH (09:17)
[2018-08-11] MEDS: ENOXAPARIN 40MG/0.4ML SYR SUBCUT SCH (21:49)
[2018-08-12] VITALS (12 sets, daily range): BP systolic 85–143; BP diastolic 46–72
[2018-08-12] MEDS: IPRATROPIUM/ALBUTEROL 0.5-3(2.5)MG/3ML NEB HHN SCH ×5 (04:09→20:15)
[2018-08-12] MEDS: VANCOMYCIN 1 G PREMIX 200 ML IV SCH (06:20)
[2018-08-12] MEDS: PANTOPRAZOLE SODIUM 40 MG/VIAL IV SCH (08:32)
[2018-08-12] MEDS: CEFEPIME 1,000 MG in DEXTROSE 5% WATER 50 ML IV SCH ×2 (08:32→21:51)
[2018-08-12] MEDS: NITROFURANTOIN 100MG M/M CAPSULE PO SCH ×2 (08:32→21:51)
[2018-08-12] MEDS: SULFAMETHOXAZOLE/TRIMETHOPRIM 800/160MG TABLET PO SCH (08:33)
[2018-08-12] MEDS: FUROSEMIDE 20MG/2ML VIAL IVP SCH (09:23)
[2018-08-12] MEDS: ENOXAPARIN 40MG/0.4ML SYR SUBCUT SCH (21:51)
[2018-08-13] VITALS (12 sets, daily range): BP systolic 94–142; BP diastolic 44–73
[2018-08-13] MEDS: IPRATROPIUM/ALBUTEROL 0.5-3(2.5)MG/3ML NEB HHN SCH ×6 (00:17→20:17)
[2018-08-13 06:27] LABS: BASOPHILS % 0.5 % (0.0-2.0); HEMATOCRIT. 33.5 % (36.0-48.0); HEMOGLOBIN. 10.9 g/dL (12.0-16.0); LYMPHOCYTES % 19.5 % (20.0-50.0); MEAN CORPUSCULAR HEMOGLOBIN 29.2 pg (28.0-32.0); MEAN CORPUSCULAR VOLUME 89.8 fL (81.0-99.0); MONOCYTES % 8.7 % (2.0-8.0); NEUTROPHILS % 66.3 % (40.0-76.0); PLATELET 265 x1000/uL (130-400); RED BLOOD CELL COUNT 3.73 mill/uL (4.2-5.4); RED CELL DISTRIBUTION WIDTH 15.8 % (11.6-14.6)
[2018-08-13] MEDS: CEFEPIME 1,000 MG in DEXTROSE 5% WATER 50 ML IV SCH ×2 (09:19→22:01)
[2018-08-13] MEDS: NITROFURANTOIN 100MG M/M CAPSULE PO SCH ×2 (09:19→22:02)
[2018-08-13] MEDS: FUROSEMIDE 20MG/2ML VIAL IVP SCH (09:20)
[2018-08-13] MEDS: ENOXAPARIN 40MG/0.4ML SYR SUBCUT SCH (22:02)
[2018-08-14] VITALS (12 sets, daily range): BP systolic 104–133; BP diastolic 50–71
[2018-08-14] MEDS: IPRATROPIUM/ALBUTEROL 0.5-3(2.5)MG/3ML NEB HHN SCH ×5 (00:20→17:01)
[2018-08-14 06:59] LABS: BG BASE EXCESS 3.4 mmol/L (-2.0-2.0); BG CARBOXYHEMOGLOBIN 0.3 % (0.5-1.5); BG DEOXYHEMOGLOBIN 0.9 % (0.0-5.0); BG FRACTION INSPIRED OXYGEN 40; BG HCO3 ACT 28.9 mmol/L (22.0-26.0); BG METHEMOGLOBIN 0.1 % (0.0-1.5); BG OXYGEN SATURATION 99.1 % (92.0-98.5); BG OXYHEMOGLOBIN 98.7 % (94.0-97.0); BG PCO2 47.8 mmHg (35.0-45.0); BG PH 7.399 (7.350-7.450); BG PO2 167.7 mmHg (75.0-100.0); BG PRESSURE SUPPORT 8; BG SAMPLE SITE RIGHT BRACHIAL; BG TOTAL HEMOGLOBIN 11.7 g/dL (12.0-18.0); BG VENT MODE VENT - CPAP
[2018-08-14] MEDS: NITROFURANTOIN 100MG M/M CAPSULE PO SCH (08:40)
[2018-08-14] MEDS: CEFEPIME 1,000 MG in DEXTROSE 5% WATER 50 ML IV SCH ×2 (08:40→21:03)
[2018-08-14] MEDS: FUROSEMIDE 20MG/2ML VIAL IVP SCH (08:40)
[2018-08-14] MEDS: ENOXAPARIN 40MG/0.4ML SYR SUBCUT SCH (21:03)
[2018-08-15] VITALS (13 sets, daily range): BP systolic 117–195; BP diastolic 49–103
[2018-08-15] MEDS: IPRATROPIUM/ALBUTEROL 0.5-3(2.5)MG/3ML NEB HHN SCH ×2 (01:58→07:47)
[2018-08-15 08:50] LABS: BG BASE EXCESS 1.2 mmol/L (-2.0-2.0); BG CARBOXYHEMOGLOBIN 0.2 % (0.5-1.5); BG DEOXYHEMOGLOBIN 3.3 % (0.0-5.0); BG FRACTION INSPIRED OXYGEN 35; BG METHEMOGLOBIN 0.2 % (0.0-1.5); BG OXYGEN SATURATION 96.7 % (92.0-98.5); BG OXYHEMOGLOBIN 96.3 % (94.0-97.0); BG PCO2 41.8 mmHg (35.0-45.0); BG PH 7.411 (7.350-7.450); BG PO2 88.7 mmHg (75.0-100.0); BG SAMPLE SITE RIGHT RADIAL; BG TOTAL HEMOGLOBIN 12.5 g/dL (12.0-18.0); BG VENT MODE MASK - AEROSOL
[2018-08-15] MEDS: CEFEPIME 1,000 MG in DEXTROSE 5% WATER 50 ML IV SCH (11:08)
[2018-08-15] MEDS: FUROSEMIDE 20MG/2ML VIAL IVP SCH (11:08)
== END 2018-08-15 16:11 | DRG 870 ==
LOC: ER 11:51 → EDBEDREQSVC 15:25 → EDBEDREQ 15:25 → SUPCPDRO 19:18 → EDBEDREQSVC 22:47 → CANRESERV 08-04 03:19 → ENRESERV 08-04 03:19 → EDBEDREQSVC 08-04 04:09 → EDBEDREQTM 08-04 04:09 → EDBEDREQDT 08-04 04:09 → MICUSO 08-04 15:22 → CANRESERV 08-04 19:07 → ENRESERV 08-04 19:07 → EDBEDREQ 08-04 20:15 → EDBEDREQSVC 08-04 20:15 → EDBEDREQTM 08-04 20:15 → ENRESERV 08-04 21:00 → 5EST 08-06 22:05
PROVIDERS: ADMIT Internal Medicine; ATTEND Internal Medicine
PROC: 5A1955Z Respiratory Ventilation, Greater than 96 Consecutive Hours (ICD-10-PCS; principal; 2018-08-04)
DX: A40.9 Streptococcal sepsis, unspecified (principal); J96.21 Acute and chronic respiratory failure with hypoxia; E43 Unspecified severe protein-calorie malnutrition; J69.0 Pneumonitis due to inhalation of food and vomit; I50.43 Acute on chronic combined systolic (congestive) and diastolic (congestive) heart failure; I21.4 Non-ST elevation (NSTEMI) myocardial infarction; N39.0 Urinary tract infection, site not specified; E87.3 Alkalosis; Z99.11 Dependence on respirator [ventilator] status; E87.5 Hyperkalemia; E86.0 Dehydration; F03.90 Unspecified dementia, unspecified severity, without behavioral disturbance, psychotic disturbance, mood disturbance, and anxiety; I48.91 Unspecified atrial fibrillation; I11.0 Hypertensive heart disease with heart failure; R13.10 Dysphagia, unspecified; K21.9 Gastro-esophageal reflux disease without esophagitis; Y95 Nosocomial condition; I73.9 Peripheral vascular disease, unspecified; D64.9 Anemia, unspecified; G40.909 Epilepsy, unspecified, not intractable, without status epilepticus; I25.10 Atherosclerotic heart disease of native coronary artery without angina pectoris; Z93.0 Tracheostomy status; I25.2 Old myocardial infarction; Z93.1 Gastrostomy status; I69.320 Aphasia following cerebral infarction; I69.391 Dysphagia following cerebral infarction; Z99.81 Dependence on supplemental oxygen; Z68.29 Body mass index [BMI] 29.0-29.9, adult
CPT/HCPCS: 36415; 36600; 71045; 80048; 80202; 82375; 82550; 82553; 82805; 82962; 83605; 83735; 84145; 84484; 87070; 87077; 87186; 93005; 93306; 93970; 94003; 94640; 96365; 96366; 99291; A6261; C9113; J0692; J0696; J1650; J1940; J1956; J2405; J2543; J3370; J3480; J3490; J7030; J7040; J7050; J7060; J7608; J7620